=== PATIENT | female | born 1960 | race African-American/Black ===

== ENCOUNTER 2018-01-15 17:11 | Outpatient (CLI) | payer OTHER | END 2018-01-15 17:12 | disposition home or self-care (01) | LOC: BICRAD 17:11 | PROVIDERS: ATTEND Family Medicine | DX: N62 Hypertrophy of breast (principal) | CPT/HCPCS: 71046 ==

== ENCOUNTER 2018-01-27 14:04 | Outpatient (CLI) | payer OTHER | END 2018-01-27 14:05 | disposition home or self-care (01) | LOC: BICMAMMO 14:04 | PROVIDERS: ATTEND Family Medicine | DX: Z12.31 Encounter for screening mammogram for malignant neoplasm of breast (principal); Z80.3 Family history of malignant neoplasm of breast | CPT/HCPCS: 77067 ==

== ENCOUNTER 2019-06-05 13:28 | Outpatient (CLI) | payer OTHER ==
--- NOTE | 2019-06-05 14:06 | MMO ---
Bilateral MAMMO Bilat Screen [facility]. CLINICAL HISTORY: Patient is 59 years old and is seen for screening. The patient has the following family history of breast cancer: mother, 2010. The patient has no personal history of cancer. The patient has a history of bilateral Breast reduction in May, and right Excisional Biopsy in 1994 - benign. VIEWS: The views performed were: bilateral craniocaudal with tomosynthesis and bilateral mediolateral oblique with tomosynthesis. FILMS COMPARED: The present examination has been compared to prior imaging studies performed at [facility] on 02/04/1995, 11/13/2005 and 01/27/2018. MAMMOGRAM FINDINGS: There are scattered fibroglandular densities. There are no suspicious masses, calcifications or areas of architectural distortion. Stable bilateral asymmetries. There are no suspicious masses, suspicious calcifications, or new areas of architectural distortion. IMPRESSION: THERE IS NO MAMMOGRAPHIC EVIDENCE OF MALIGNANCY. A ROUTINE FOLLOW-UP MAMMOGRAM IN 1 YEAR IS RECOMMENDED. THE RESULTS OF THIS EXAM WERE SENT TO THE PATIENT. ACR BI-RADS Category 2 - Benign finding MAMMOGRAPHY NOTE: 1. A negative mammogram report should not delay a biopsy if a dominant of clinically suspicious mass is present. 2. Approximately 10% to 15% of breast cancers are not detected by mammography. 3. Adenosis and dense breasts may obscure an underlying neoplasm. Reported by: DINAH MOROCHO MD Electonically Signed: [id number]
== END 2019-06-05 13:29 | disposition home or self-care (01) ==
LOC: BICMAMMO 13:28
PROVIDERS: ATTEND Family Medicine
DX: Z12.31 Encounter for screening mammogram for malignant neoplasm of breast (principal); Z80.3 Family history of malignant neoplasm of breast; Z91.89 Other specified personal risk factors, not elsewhere classified; Z98.82 Breast implant status
CPT/HCPCS: 77063; 77067

== ENCOUNTER 2021-04-18 14:13 | Outpatient (CLI) | payer OTHER | END 2021-04-18 14:14 | disposition home or self-care (01) | LOC: BICRAD 14:13 | PROVIDERS: ATTEND Internal Medicine | DX: Z02.71 Encounter for disability determination (principal) | CPT/HCPCS: 72100 ==

== ENCOUNTER 2023-06-25 10:54 | Outpatient (CLI) | payer OTHER | END 2023-06-25 10:55 | disposition home or self-care (01) | LOC: RAD 10:54 | PROVIDERS: ATTEND Nurse Practitioner Family | DX: M25.561 Pain in right knee (principal); M25.562 Pain in left knee; M17.12 Unilateral primary osteoarthritis, left knee ==

== ENCOUNTER 2023-08-29 21:09 | Emergency (ER) | payer OTHER ==
[2023-08-29] MEDS ORDERED: Ketorolac Tromethamine 30 MG/ML VIAL ONE (21:37)
[2023-08-29 21:39] LABS: #Basophils 0.1 thou/uL (0.0-0.2); #Eosinphils 0.1 thou/uL (0.0-0.7); #Monocytes 0.9 thou/uL (0.11-0.59); #Neutrophils 4.8 thou/uL (1.40-6.50); %Basophils 0.6 % (0.0-1.0); %Eosinophils 1.6 % (0.0-10.0); %Lymphocytes 34.3 % (21.0-51.0); %Neutrophils 53.2 % (42.0-75.0); Hematocrit 41.4 % (36.0-47.0); Hemoglobin 13.3 g/dL (12.0-16.0); Mean Corpuscular HGB CONC 32.1 g/dL (32.0-36.0); Mean Corpuscular Hemoglobin 27.7 pg (27.0-31.0); Mean Corpuscular Volume 86.1 fl (78.0-98.0); Mean Platelet Volume 9.8 fL (7.4-10.4); Platelet Count 263 10x3/uL (130-400); RBC Distribution Width 14.6 % (11.5-14.5); Red Blood Cell (RBC) Count 4.81 mill/uL (4.20-5.40)
[2023-08-29 22:06] LABS: Troponin I Less than 0.010 ng/mL (< 0.028)
[2023-08-29] MEDS ORDERED: Cyclobenzaprine 10 MG TAB ONE (23:39)
[2023-08-30 00:52] LABS: ALT (SGPT) 22 U/L (8-55); AST (SGOT) 21 U/L (5-34); Albumin 3.8 g/dL (3.4-4.8); Alkaline Phosphatase 109 U/L (40-110); Anion Gap 14 mmol/L (10-20); BUN (Urea Nitrogen) 7 mg/dL (9.8-20.1); Bilirubin, Total 0.4 mg/dL (0.2-1.2); Calc. Creatinine Clearance 0 mL/min (70-130); Calcium 9.3 mg/dL (7.8-10.44); Carbon Dioxide 25 mmol/L (23-31); Chloride 101 mmol/L (98-107); Estimated GFR 95; Globulin 3.8 g/dL (2.4-3.5); Glucose 106 mg/dL (80-115); Lipase 23 U/L (8-78); Potassium 3.7 mmol/L (3.5-5.1); Protein, Total 7.6 g/dL (5.8-8.1); Sodium 136 mmol/L (136-145)
== END 2023-08-30 01:08 | disposition home or self-care (01) ==
LOC: ERS 21:09
DX: M79.18 Myalgia, other site (principal)
CPT/HCPCS: 36415; 71045; 80053; 83690; 84484; 85025; 93005; 96374; J1885

== ENCOUNTER 2024-06-10 08:54 | Outpatient (CLI) | payer MEDICARE | END 2024-06-10 08:55 | disposition home or self-care (01) | LOC: BICMAMMO 08:54 | PROVIDERS: ATTEND Nurse Practitioner Family | DX: Z12.31 Encounter for screening mammogram for malignant neoplasm of breast (principal); Z80.3 Family history of malignant neoplasm of breast; Z91.89 Other specified personal risk factors, not elsewhere classified; Z98.890 Other specified postprocedural states | CPT/HCPCS: 77063; 77067 ==